=== PATIENT | female | born 1995 | race Two or more races ===

== ENCOUNTER 2025-01-14 21:56 | Emergency (ER) | payer MEDICAID, SELFPAY ==
[2025-01-14 22:42] LABS: Collection Type, Urine Clean Catch
[2025-01-14 22:51] LABS: Bilirubin,Urine 1+ (Negative); Blood,Urine Negative (Negative); Clarity,Urine Turbid (Clear/Hazy); Color,Urine Drk-Orange (Lt Yel-Yel); Glucose, Urine Negative (Negative); Ketones,Urine Negative (Negative); Leukocyte Esterase,Urine Positive (Negative); Nitrite,Urine Positive (Negative); PH,Urine 6.0 (5.0-7.0); Protein,Urine Negative (Neg - Trace); RBC,Urine 7 /hpf (0-3); Specific Gravity,Urine 1.018 (1.001-1.035); Squamous Epithelial Cell,Urine 2 /hpf (0-5); Urobilinogen,Urine 4.0 mg/dL (0.0-1.0); WBC,Urine 202 /hpf (0-5)
[2025-01-14 22:56] LABS: Culture Indicated,Urine Yes
[2025-01-14 22:59] LABS: HCG Qualitative,Urine Negative
[2025-01-14 23:24] VITALS: BP 116/57; PULSE 71; RESP 18; TEMP 36.6; O2SAT 97
--- NOTE | 2025-01-15 00:51 | EDNOTE_ITS ---
ED Female Urogenital RME/HPI General Chief complaint: Urogenital-Female Stated complaint: PAIN IN URINATION Arrival date/time: 01/14/25 21:56 RME / HPI RME / HPI Narrative: 29-year-old female presents to the ED with a complaint of dysuria, frequency, urgency, and low back pain. She has frequent UTIs and regularly has 1 prior to the onset of her menstrual cycle. She is pending an appointment to a urologist for further workup and evaluation. She denies any fever or chills, nausea or vomiting. She indicates she has very painful menstrual cycles. Patient states she took a Pyridium today. Related Data Previous Rx's ?Medication ?Instructions ?Recorded nitrofurantoin 100 mg PO Q12H #14 caps 06/08 06/24 monohydrate/macrocrystals 100 mg capsule (Macrobid) cephalexin 500 mg capsule 500 mg PO BID #14 caps 01/15 Allergies Allergy/AdvReac Type Severity Reaction Status Date / Time No Known Allergies Allergy Verified 01/14/25 21:57 Review of Systems Review of Systems Systems Reviewed: All systems reviewed, normal except as documented Past Medical History Past Medical History CARDIAC: Negative Congestive Heart Failure RESPIRATORY: Negative Chronic Obstructive Pulmonary Disease (COPD) GENITOURINARY: Negative Renal Disease ENDOCRINE: Negative Diabetes Mellitus Type 1 or Diabetes Mellitus Type 2 Social History SMOKING STATUS: Never smoker ED Exam Narrative Physical exam: A&O, afebrile and non-toxic appearing 29-year-old female, no acute distress. Lung are clear, RRR, Abdomen is soft, mild bilateral lower pelvic and suprapubic tenderness. No CVA tenderness noted. She does have tenderness to the right sciatic notch. Advised that this tenderness is likely related to sciatica. Moves all extremities well. Course Course Course Narrative: Urinalysis reveals turbid, dark orange urine with a specific gravity 1.018 with negative blood, positive nitrates, positive leukocyte esterase, 1+ bilirubin, 7 RBCs, 202 WBCs, 2 epis and no bacteria. A culture is indicated and pending. Urine hCG is negative. Patient was given Keflex 500 mg p.o. prior to her discharge. Quality Measures none Orders Category Date Time Status HCG Qualitative,Urine Stat Lab 01/14/25 22:35 Completed UA, C/S IF [Urinalysis, C/S if Indicated] Stat Lab 01/14/25 22:35 Completed Urine Culture Stat Lab 01/14/25 22:35 Received cephALEXin [Keflex] Med 01/15/25 00:50 Once 500 mg PO X1 ONE Vital Signs Vital signs: Vital Signs Temperature 98 F 01/14/25 23:24 Pulse Rate 71 01/14/25 23:24 Respiratory Rate 18 01/14/25 23:24 Blood Pressure 116/57 L 01/14/25 23:24 Pulse Oximetry (%) 97 01/14/25 23:24 Oxygen Delivery Method Room Air 01/14/25 23:24 Urogenital - Female MDM Narrative MDM Narrative:: Symptoms, exam and diagnostic studies are consistent with: Chronic lower urinary tract infections. Patient was discharged home in stable condition. Patient/family advised to follow-up with their PCP in 24-48 hours. Encouraged to return to the ED for any new or worsening symptoms. Patient data External records reviewed:: None Clinical information provided by:: patient Social determinants that could affect healthcare access:: none Patient has the following chronic illnesses:: Chronic UTIs with dysmenorrhea, possibly related to endometriosis? How is presenting disease/condition affected by chronic disease/condition?: exacerbated by Evaluation data The following diagnostics were reviewed and interpreted by me:: lab results Lab and/or radiology exams considered but not ordered:: N/A Interpretation Summary: As noted above Medications / Prescriptions Medications or Prescriptions considered but not ordered:: N/A Medication administrations:: Medication Administration History Cephalexin HCl (Cephalexin 250 Mg Capsule) 500 mg PO X1 ONE Stop: 01/15/25 00:51 As noted above Consultations Consultation(s) initiated? (list below): No Diagnosis Urogenital Female Differential Diagnosis: urinary tract infection, bacterial vaginosis, vaginitis and cystitis Most likely diagnosis given after review of the tests above:: Acute lower urinary tract infection. Admission Indicated Admission indicated?: not indicated Explain why admission is indicated or not indicated:: Patient is stable for discharge Admission Request Was there a request for admission?: No Admission Attestation Admission request attestation: N/A Disposition Plan Disposition Plan: Discharge Discharge Attestation Discharge Attestation: The patient and all family members were given an opportunity to ask questions and understood the discharge instructions. Discharge instructions specifically effects, indications for sooner follow up or return to the emergency department, and the expected course of current diagnosis. Patient condition: Stable Discharge Plan Plan Patient Disposition: HOME (Self Care) Discharge Disposition comment: Stable Prescriptions/Referrals Prescriptions/Med Rec: New cephalexin 500 mg capsule 500 mg PO BID Qty: 14 0RF No Action nitrofurantoin monohyd/m-cryst [Macrobid] 100 mg capsule 100 mg PO Q12H Qty: 14 0RF Rx Instructions: must administer with a meal/food Referrals: Brad Tate MD [Primary Care Provider] - In 1 week Problem List Clinical Impression: Urinary tract infection, Cystitis, Dysmenorrhea Patient/Caregiver Discharge Instructions Education Materials: Understanding Urinary Tract ..., ED CYSTITIS Female Adult Additional Instructions: Take the antibiotics as prescribed and complete the course even though you may be feeling better. Urine culture was ordered and is currently pending. You will receive a call if your antibiotics need to be changed. Follow-up with your primary care physician in 24 to 48 hours. Return to the ED for any new or worsening symptoms. Print Language: Australian Stand Alone Forms: Cynthia Award Info., Patient Portal Info Letter PA/MIC Supervising Physician ESTEFANIA/MIC Supervising Physician: Dr. Cruz
[2025-01-15 01:29] VITALS: RESP 18
== END 2025-01-15 01:29 | disposition home or self-care (01) ==
PROVIDERS: Emergency Provider Emergency Medicine; PCP Family Medicine
DX: N30.90 Cystitis, unspecified without hematuria (principal); N94.6 Dysmenorrhea, unspecified; Z87.440 Personal history of urinary (tract) infections
CPT/HCPCS: 81001; 81025; 87077; 87086; 87186; 99283; A9270